=== PATIENT | female | born 2005 | race Two or more races ===

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

== ENCOUNTER 2025-02-03 23:13 | Emergency (ER) | payer BC, OTHER ==
[~2025-02-03] VITALS: Ht 172.7 cm; Wt 80.6 kg
--- NOTE | 2025-02-03 23:56 | ED.PDOC ---
History of Present Illness HPI Comments 19 y/o F presents with c/c of light pink vaginal spotting. Patient reports on learning on being , again, 3x days ago with an at-home test ([id number]; LMP 01/07/25). Spotting is stated to have started today. No associated abdominal pain or cramping. Only history of induced delivery for her first , due to being high-risk with '[id number]' medical condition. She denies any recent trauma or injuries. She denies any further acute symptoms. 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 Surgical History: Denies all surgeries BIOLOGICAL TECHNICIAN History: No Pertinent BIOLOGICAL TECHNICIAN History 2 Para 1 AB 0 LMP 01/07/25 Family History Family History: Reviewed,noncontributory to illness Social History Smoker: Non-Smoker Alcohol: Occasionally Drugs: Denies Drug Use Lives In: Home Constitutional: denies: chills, diaphoresis, fatigue, fever, malaise, sweats, weakness, others EENTM: denies: blurred vision, double vision, ear bleeding, ear discharge, ear drainage, ear pain, ear ringing, eye pain, eye redness, hearing loss, mouth pain, mouth swelling, nasal discharge, nose bleeding, nose congestion, nose pain, photophobia, tearing, throat pain, throat swelling, voice changes, others Respiratory: denies: cough, hemoptysis, orthopnea, SOB at rest, shortness of breath, SOB with excertion, stridor, wheezing, others Cardiovascular: denies: chest pain, dizzy spells, diaphoresis, Dyspnea on exertion, edema, irregular heart beat, left arm pain, lightheadedness, palpita tions, PND, syncope, others Gastrointestinal: denies: abdomen distended, abdominal pain, blood streaked eva wels, constipated, diarrhea, dysphagia, difficulty swallowing, hematemesis, melena, nausea, poor appetite, poor fluid intake, rectal bleeding, rectal pain, vomiting, others Genitourinary: reports: abnormal vagina bleeding; denies: burning, dyspareunia, dysuria, flank pain, frequency, hematuria, incontinence, pain, , vagina discharge, urgency, others Neurological: denies: dizziness, fainting, headache, left sided numbness, left sided weakness, numbness, paresthesia, pre-existing deficit, right sided numbness, right sided weakness, seizure, speech problems, tingling, tremors, weakness, others Musculoskeletal: denies: back pain, gout, joint pain, joint swelling, muscle pain, muscle stiffness, neck pain, others Integumetry: denies: bruises, change in color, change in hair/nails, dryness, laceration, lesions, lumps, rash, wounds, others Allergic/Immunocompromised: denies: Difficulty Healing, Frequent Infections, Hives, Itching, others Hematologic/Lymphatic: denies: anemia, blood clots, easy bleeding, easy bruising, swollen glands, others Endocrine: denies: excessive hunger, excessive sweating, excessive thirst, excessive urination, flushing, intolerance to cold, intolerance to heat, unexplained weight gain, unexplained weight loss, others Psychiatric: denies: anxiety, bipolar disorder, depression, hopeless, panic d isorder, schizophrenia, sleepless, suicidal, others All Other Systems: Reviewed and Negative Physical Exam General Appearance: No Apparent Distress HEENT: Normal ENT Inspection, Pharynx Normal, TMs Normal Neck: Full Range of Motion, Non-Tender, Normal, Normal Inspection Respiratory: Chest Non-Tender, Lungs Clear, No Accessory Muscle Use, No Respiratory Distress, Normal Breath Sounds Cardiovascular: No Edema, No JVD, No Murmur, No Gallop, Normal Peripheral Pulses, Regular Rate/Rhythm Breast Exam: Deferred Gastrointestinal: No Organomegaly, Non Tender, No Pulsatile Mass, Normal Bowel Sounds, Soft Genitalia: Deferred Pelvic: Deferred Rectal: Deferred Extremities: No calf tenderness, Normal capillary refill, Normal inspection, Normal range of motion, Non-tender, No pedal edema Musculoskeletal : Apperance: Normal Neurologic: Alert, taper operator II-XII nml as Tested, No Motor Deficits, Normal Affect, Normal Mood, No Sensory Deficits Cerebellar Function: Normal Reflexes: Normal Skin: Dry, Normal Color, Warm Lymphatic: No Adenopathy Was a procedure done? Was a procedure done?: No Differential Dx Considerations may include: ectopic , hormonal, electrolyte imbalance, dehydration, among others X-Ray, Labs, Meds, VS Vital Signs Date Time Temp Pulse Resp B/P (MAP) Pulse Ox O2 Delivery O2 Flow Rate FiO2 02/03/25 23:15 98.7 101 16 117/72 98 98.7 Lab Test 02/03/25 23:59 02/03/25 23:43 Range/Units Urine Color Light-yellow Yellow Urine Clarity Clear Clear Urine pH 7.0 5.0-9.0 Urine Specific Morning Sun 1.009 1.001-1.035 Urine Protein Negative Negative Urine Ketones Negative Negative Urine Blood Negative Negative /uL Urine Nitrite Negative Negative Urine Bilirubin Negative Negative Urine Urobilinogen Normal Negative mg/dL Urine Leukocyte Esterase 3+ Negative /uL Urine RBC None seen 0 - 4 /hpf Urine Microscopic WBC 13 H 0-5 /HPF Urine Squamous Epithelial Cells Few <5 /hpf Urine Bacteria None seen None Seen /hpf Urine Mucus Few None Seen Urine Glucose Normal Normal mg/dL Beta HCG, Quantitative 30.1 H 1.5-4.2 mIU/mL PROCEDURE(s): OB4US - OB ULTRASOUND COMP LESS 14WKS IMPRESSION: 1. No intrauterine gestational sac. Recommend correlation with beta hCG and follow-up sonography as clinically indicated. 2. Pelvic cul-de-sac free fluid. Time of 1ST Reevaluation: 00:00 Reevaluation 1ST: Unchanged Patient Education/Counseling: Diagnosis, Treatment, Need For Follow Up Family Education/Counseling: No Family Present SEPSIS Sepsis Screen Date sepsis recognized/suspect: Feb 03, 2025 Time Sepsis recognized/suspect: 2316 Recent Procedure: No On Antibiotic Therapy: No Respiratory Rate >20: No Heart Rate >90: No Temp<36 C (96.8 F) or >38.3 C: No SBP <90 or MAP <65 mmHG: No New Acute Mental Status Change: No Is the patient on CPAP, BIPAP,: No Physician Orders Ob Ultrasound Comp Less 14wks (02/04/25 00:20) Ob Trans Vaginal Us (02/04/25 ) Vital Signs Date Time Temp Pulse Resp B/P (MAP) Pulse Ox O2 Delivery O2 Flow Rate FiO2 02/03/25 23:15 98.7 101 16 117/72 98 98.7 Departure 1 Departure Time of Disposition: 02:03 Impression: Primary Impression: UTI (urinary tract infection) Qualified Codes: N30.00 - Acute cystitis without hematuria Additional Impression: Complete Disposition: 01 HOME / SELF CARE / HOMELESS Condition: Fair e-Prescriptions Nitrofurantoin Monohydrate Mac (Macrobid) 100 Mg Cap 100 MG PO BID for 5 Days, #10 CAP Prov: NATALIE MARADIAGA MD 02/04/25 Discharged With: Self Critical Care Note Critical Care Time?: No Stability Stability form required: No Heart Score Heart Score: Heart Score Response (Comments) Value History N/A 0 EKG N/A 0 Age N/A 0 Risk Factors N/A 0 Troponin N/A 0 Total 0 I personally scribed for NATALIE MARADIAGA MD ([email or web address]) on 02/03/25 at 23:56. Electronically submitted by Jonathon Wells ([email or web address]). I personally scribed for NATALIE MARADIAGA MD ([email or web address]) on 02/04/25 at 01:34. Electronically submitted by Jonathon Wells ([email or web address]). NATAILE MARADIAGA MD Feb 03, 2025 23:56
--- NOTE | 2025-02-04 01:21 | DVH ---
INDICATION: vaginal spotting TECHNIQUE: Multiple real-time grayscale transabdominal sonographic images along with color and duplex Doppler of the uterus and ovaries were obtained. COMPARISON: US OB LIMITED on DOS: 04/25/24, US OB LIMITED on DOS: 02/27/24 FINDINGS: The uterus measures 7.8 x 5.1 x 4.5 cm. The endometrial stripe measures 1.3 cm. No identifiable intrauterine gestational sac. Pelvic cul-de-sac free fluid present. Right ovary measures 2.9 x 1.9 x 1.8 cm with normal Doppler color flow. Left ovary measures 2.4 x 2.3 x 1.8 cm with normal Doppler color flow. IMPRESSION: 1. No intrauterine gestational sac. Recommend correlation with beta hCG and follow-up sonography as clinically indicated. 2. Pelvic cul-de-sac free fluid.
[2025-02-04 01:46] LABS: Urine Protein, UAD Negative (Negative)
[2025-02-04] MEDS ORDERED: NITR-87 PO (02:03)
[2025-02-04 02:51] VITALS: BP 126/89; PULSE 81; TEMP 98.5
[2025-02-04 03:00] VITALS: RESP 19; O2SAT 98
[2025-03-16] MEDS ORDERED: BACDST PO (03:24)
== END 2025-02-04 03:04 | disposition home or self-care (01) ==
LOC: ER 23:13
DX: O03.9 Complete or unspecified spontaneous abortion without complication (principal); O23.41 Unspecified infection of urinary tract in pregnancy, first trimester; N39.0 Urinary tract infection, site not specified; Z3A.00 Weeks of gestation of pregnancy not specified
CPT/HCPCS: 36415; 76801; 76817; 81001; 84702